=== PATIENT | female | born 1955 | race Caucasian/White ===

== ENCOUNTER 2018-08-03 11:13 | Emergency (ER) | payer MEDICARE, OTHER ==
[2018-08-03] MEDS ORDERED: Ramipril CAP* 10 MG PO ONE (11:39)
--- NOTE | 2018-08-03 11:42 | ED ---
Hypertension - HPI Summary HPI Summary: Pt is a 63 y/o female who presents to the ED c/o HTN. While in preparation for an endoscopy today, her BP was 210/100 manual. Pt has had epigastric pain for a while and has been losing weight. She was diagnosed with a hiatal hernia, and denies the pain radiating to her back. She has a history of HTN, but has not taken her BP medications for years because she didnt think I needed it anymore. Pt also states she thinks she has high BP because she was anxious for the procedure. No PMHx CVA or CA. Pt denies any fever, chills, eye redness, sore throat, CP, chest tightness, SOB, cough, current abdominal pain, N/V, dysuria, hematuria, myalgia, edema, dizziness, or rash. Pt is a former smoker. Home Medications Medication Instructions Recorded Confirmed Type Roflumilast (NF) [Daliresp (NF)] 250 mcg PO DAILY 08/28/13 07/26/18 History Atorvastatin* [Lipitor*] 40 mg PO QAM 01/28/15 07/26/18 History Albuterol HFA INHALER* [Ventolin 1 puff INH Q6H PRN 07/26/18 07/26/18 History HFA Inhaler*] Diazepam TAB(*) [Valium TAB(*)] 5 mg PO SEE INSTRUCTIONS PRN 07/26/18 07/26/18 History Esomeprazole(NF) [NexIUM(NF)] 40 mg PO DAILY 07/26/18 07/26/18 History Ondansetron TAB* [Zofran 4 MG Tab*] 4 mg PO Q6H PRN 07/26/18 07/26/18 History Ramipril CAP* [Altace CAP*] 10 mg PO DAILY 07/26/18 07/26/18 History Sertraline* [Zoloft*] 50 mg PO DAILY 07/26/18 07/26/18 History - History of Current Complaint Chief Complaint: EDHypertension Stated Complaint: HIGH BLOOD PRESSURE Time Seen by Provider: 08/03/18 11:28 Hx Obtained From: Patient Onset/Duration: Started Hours Ago - Today, Still Present Timing: Constant Reported Blood Pressure Prior To Arrival: 210/100 Aggravating Factor(s): Other: - HTN medication non-compliance, anxiety Alleviating Factor(s): Nothing Associated Signs & Symptoms: Anxiety/Stress - Allergies/Home Medications Allergies/Adverse Reactions: Allergies Allergy/AdvReac Type Severity Reaction Status Date / Time pneumococcal vaccine Allergy Swelling Verified 08/03/18 11:21 PMH/Surg Hx/FS Hx/Imm Hx Endocrine/Hematology History: Reports: Hx Unexplained Bleeding - BRUISES Denies: Hx Diabetes Cardiovascular History: Reports: Hx Hypercholesterolemia - HLD, Hx Hypertension - ON MEDICATION FOR, Other Cardiovascular Problems/Disorders - hyperlipidemia Denies: Hx Pacemaker/ICD Respiratory History: Reports: Hx Asthma, Hx Chronic Obstructive Pulmonary Disease (COPD), Other Respiratory Problems/Disorders - COPD, PRN O2 SET AT 3 LITERS VIA NASAL CANNULA GI History: Reports: Hx Gastroesophageal Reflux Disease - ON MEDICATION FOR, Other GI Disorders - cholecystitis History: Denies: Hx Dialysis, Hx Renal Disease Musculoskeletal History: Reports: Hx Arthritis - RIGHT KNEE, Other Musculoskeletal History - Rt knee replacement Sensory History: Reports: Hx Contacts or Glasses - glasses Denies: Hx Hearing Aid Opthamlomology History: Reports: Hx Contacts or Glasses - glasses Neurological History: Reports: Hx Migraine - PRN MEDICATION FOR Psychiatric History: Denies: Hx Panic Disorder - Surgical History Surgery Procedure, Year, and Place: tubal LIGATION-[facility]. partial hysterectomy- [facility]. CHOLECYSTECTOMY 02/03/2015. RIGHT TOTAL KNEE REPLACEMENT 02/10/2015 Hx Anesthesia Reactions: No Infectious Disease History: No Infectious Disease History: Denies: Hx of Known/Suspected MRSA, Traveled Outside the [place] in Last 30 Days - Family History Known Family History: Positive: Cardiac Disease - Mother - Social History Alcohol Use: Occasionally Hx Substance Use: No Substance Use Type: Reports: None Hx Tobacco Use: Yes Smoking Status (MU): Former Smoker Amount Used/How Often: 3 PPD X 35 YEARS Have You Smoked in the Last Year: No Review of Systems Negative: Fever, Chills Negative: Erythema Negative: Sore Throat Negative: Chest Pain Negative: Shortness Of Breath, Cough Negative: Abdominal Pain, Vomiting, Nausea Negative: dysuria, hematuria Negative: Myalgia, Edema Negative: Rash Neurological: Other - NEGATIVE: dizziness Negative: Headache All Other Systems Reviewed And Are Negative: Yes Physical Exam - Summary Physical Exam Summary: Constitutional: Well-developed, Well-nourished, Alert. (-) Distressed Skin: Warm, Dry HENT: Normocephalic; Atraumatic Eyes: Conjunctiva normal Neck: Musculoskeletal ROM normal neck. (-) JVD, (-) Stridor, (-) Tracheal deviation Cardio: Rhythm regular, rate normal, Heart sounds normal; Intact distal pulses; The pedal pulses are 2+ and symmetric. Radial pulses are 2+ and symmetric. (-) Murmur Pulmonary/Chest wall: Effort normal. (-) Respiratory distress, (-) Wheezes, (-) Rales Abd: Soft, (-) epigastric tenderness, (-) Distension, (-) Guarding, (-) Rebound Musculoskeletal: (-) Edema Lymph: (-) Cervical adenopathy Neuro: Alert, Oriented x3 Psych: Mood and affect Normal Triage Information Reviewed: Yes Vital Signs On Initial Exam: Initial Vitals Temp Pulse Resp BP Pulse Ox 97.6 F 65 17 228/104 96 08/03/18 11:16 08/03/18 11:16 08/03/18 11:16 08/03/18 11:16 08/03/18 11:16 Vital Signs Reviewed: Yes Diagnostics - Vital Signs Vital Signs Temp Pulse Resp BP Pulse Ox 08/03/18 11:16 97.6 F 65 17 228/104 96 - Laboratory Result Diagrams: 08/03/18 12:10 08/03/18 12:10 Lab Statement: Any lab studies that have been ordered have been reviewed, and results considered in the medical decision making process. - EKG 11:39 Cardiac Rate: Bradycardia - 59 bpm EKG Rhythm: Sinus Rhythm EKG Interpretation: No STEMI Hypertension Course/Dx - Course Course Of Treatment: Pt is a 63 y/o female who presents to the ED c/o HTN. While in preparation for an endoscopy today, her BP was 210/100 manual. She has a history of HTN, but has not taken her BP medications for years because she didnt think I needed it anymore. Pt also states she thinks she has high BP because she was anxious for the procedure. Pt denies any fever, chills, eye redness, sore throat, CP, chest tightness, SOB, cough, current abdominal pain, N /V, dysuria, hematuria, myalgia, edema, dizziness, or rash. A physical exam was normal. An EKG revealed bradycardia at a rate of 59 bpm, sinus rhythm, and no STEMI. Final dx are uncontrolled hypertension and non-compliance with medications. Pt is discharged and is agreeable with this plan. I have re- prescribed her Ramipril 10 mg daily and she needs to see Dr Guzman within 2-3 days - Diagnoses Provider Diagnoses: Uncontrolled hypertension, Non compliance w medication regimen Discharge - Sign-Out/Discharge Documenting (check all that apply): Patient Departure - Discharge - Discharge Plan Condition: Stable Disposition: HOME Prescriptions: Ramipril CAP* [Altace CAP*] 10 mg PO DAILY #30 cap Patient Education Materials: Hypertension (ED) Referrals: [facility] [Primary Care Provider] - (2-3 days) [facility] [Outside] (2-3 days) Additional Instructions: RETURN TO THE EMERGENCY DEPARTMENT FOR CHANGING OR WORSENING SYMPTOMS - Billing Disposition and Condition Condition: STABLE Disposition: Home - Attestation Statements Document Initiated by Scribe: Yes Documenting Scribe: Cortney Jolley Provider For Whom Scribe is Documenting (Include Credential): Bruce Lunsford MD Scribe Attestation: ICortney, scribed for Bruce Lunsford MD on 08/04/18 at 1243. Scribe Documentation Reviewed: Yes Provider Attestation: The documentation as recorded by the scribeCortney accurately reflects the service I personally performed and the decisions made by , Bruce Lunsford MD
[2018-08-03 12:21] LABS: ABS Basophils 0 10^3/ul (0-0.2); ABS Eosinophils 0.1 10^3/ul (0-0.6); ABS Lymphocytes 1.5 10^3/ul (1.0-4.8); ABS Monocytes 0.9 10^3/ul (0-0.8); ABS Neutrophils 5.3 10^3/ul (1.5-7.7); ABS Nucleated RBC 0 10^3/ul; Eosinophil % 0.8 % (0-6); Hematocrit 40 % (35-47); Hemoglobin 13.6 g/dl (12.0-16.0); Lymphocyte % 19.6 % (25-47); Mean Corpuscular HGB Conc 34 g/dl (31-36); Mean Corpuscular Hemoglobin 28 pg (27-31); Mean Corpuscular Volume 83 fL (80-97); Mean Platelet Volume 7.1 um3 (7.4-10.4); Nucleated Red Blood Cells % 0.1; Platelet Count 237 10^3/ul (150-450); Red Blood Count 4.85 10^6/ul (4.00-5.40); Red Cell Distribution Width 14 % (10.5-15); White Blood Count 7.9 10^3/ul (3.5-10.8)
[2018-08-03 12:44] LABS: EGFR Non-African American 57.8 (>60)
[2018-08-03 13:59] VITALS: BP 184/87
== END 2018-08-03 13:58 | disposition home or self-care (01) ==
LOC: ED 11:13
DX: I10 Essential (primary) hypertension (principal); Z87.891 Personal history of nicotine dependence; Z91.14 Patient's other noncompliance with medication regimen; R19.4 Change in bowel habit; R11.0 Nausea; K62.5 Hemorrhage of anus and rectum; J44.9 Chronic obstructive pulmonary disease, unspecified; R10.9 Unspecified abdominal pain; Z53.8 Procedure and treatment not carried out for other reasons; Z96.651 Presence of right artificial knee joint; Z86.010 Personal history of colon polyps; Z91.09 Other allergy status, other than to drugs and biological substances; Z79.899 Other long term (current) drug therapy; Z91.018 Allergy to other foods
CPT/HCPCS: 36415; 80053; 83605; 83880; 84484; 85025; 93005; 99283; A9270-GY

== ENCOUNTER 2024-01-18 17:08 | Inpatient (IN) ==
[2024-01-18] MEDS: Albuterol/Ipratropium NEB.SOL (2.5/0.5 MG) 3 ML NEB.SOLN INH ONE (17:39)
[2024-01-18] MEDS: methylPREDNISolone SOD SUCC 125 mg 2 ML VIAL IV ONE (17:46)
[2024-01-18 18:11] LABS: ABS Lymphocytes 0.5 10^3/uL (1.0-4.8); ABS Monocytes 0.3 10^3/uL (0.0-0.9); ABS Neutrophils 7.7 10^3/uL (1.5-7.6); ABS Nucleated RBC 0.01 10^3/ul; Hematocrit 37.6 % (35-45); Hemoglobin 12.8 g/dL (11.5-14.3); Mean Corpuscular Hemoglobin 28.3 pg (27-33); Mean Corpuscular Volume 83.4 fL (80-97); Mean Platelet Volume 6.8 fL (7.5-11.2); Nucleated Red Blood Cells % 0.1 %/100WBC (0.0-0.8); Platelet Count 316 10^3/uL (150-450); Red Blood Count 4.51 10^6/uL (3.63-4.92); Red Cell Distribution Width 15.9 % (12-17); White Blood Count 8.5 10^3/uL (3.8-11.8)
[2024-01-18 18:41] LABS: Albumin/Globulin Ratio 1.4 (1-3); Calcium 9.3 mg/dL (8.6-10.3); Creatinine, Serum 1.71 mg/dL (0.51-0.95); Globulin 2.8 g/dL (2-4); Potassium 4.6 mmol/L (3.5-5.0); Total Bilirubin 0.5 mg/dL (0.2-1.0); Total Protein 6.8 g/dL (6.4-8.9)
[2024-01-18] MEDS ORDERED: Lorazepam PYXIS KEY PRN (18:48)
[2024-01-18] MEDS: LORazepam 2 mg VIAL 1 ml IV PUSH ONE (19:17)
[2024-01-18] MEDS: cefTRIAXone 1 gm/50 mL D5W 1 GM/50 ML BAG IV ONE (19:18)
[2024-01-18 19:50] LABS: High Sensitivity Troponin 1 Hr 14 pg/mL (<15)
[2024-01-18] MEDS ORDERED: Albuterol HFA INHALER 8 gm MDI INH PRN (20:22)
[2024-01-18] MEDS: Albuterol/Ipratropium NEB.SOL (2.5/0.5 MG) 3 ML NEB.SOLN INH SCH (21:18)
[2024-01-18] MEDS: methylPREDNISolone SOD SUCC 40 mg/ml 1 ml VIAL IV SCH (22:04)
[2024-01-18] MEDS: Azithromycin 500 mg/250 ml NS 500 MG/250 ML BAG IVPB SCH (22:05)
[2024-01-18] MEDS: Enoxaparin 30 MG/0.3 ML SYR SUBCUT SCH (22:06)
[2024-01-18] MEDS: FORMOTEROL INH SCH (22:07)
[2024-01-18] MEDS: BUDESONIDE INH SCH (22:07)
[2024-01-18] MEDS: GLYCOPYRROLATE INH SCH (22:07)
[2024-01-19] MEDS: Albuterol HFA INHALER 8 gm MDI INH SCH (01:58)
[2024-01-19 06:18] LABS: ABS Lymphocytes 0.5 10^3/uL (1.0-4.8); ABS Monocytes 0.2 10^3/uL (0.0-0.9); ABS Neutrophils 7.5 10^3/uL (1.5-7.6); Hematocrit 35.9 % (35-45); Lymphocyte % 5.7 %; Mean Corpuscular Hemoglobin 27.8 pg (27-33); Mean Corpuscular Hgb Conc 33.3 g/dL (31-36); Mean Corpuscular Volume 83.4 fL (80-97); Platelet Count 280 10^3/uL (150-450); Red Blood Count 4.31 10^6/uL (3.63-4.92); Red Cell Distribution Width 15.9 % (12-17); White Blood Count 8.2 10^3/uL (3.8-11.8)
[2024-01-19 06:47] LABS: Calcium 8.6 mg/dL (8.6-10.3); Creatinine, Serum 1.55 mg/dL (0.51-0.95); Magnesium 1.8 mg/dL (1.9-2.7); Potassium 4.3 mmol/L (3.5-5.0)
[2024-01-19] MEDS: Magnesium Sulfate IV 1GM/100ML 1 GM/100 ML BAG IV ONE (08:10)
[2024-01-19] MEDS: Albuterol/Ipratropium NEB.SOL (2.5/0.5 MG) 3 ML NEB.SOLN INH PRN (08:22)
[2024-01-19] MEDS: CMCS: Roflumilast 500 mcg TAB (NF) PO SCH (08:41)
[2024-01-19] MEDS ORDERED: AMLODIPINE BENAZEPRIL PO SCH (09:00)
[2024-01-19] MEDS: PTO: BUDESONIDE/GLYCOPYR/FORMOTEROL MDI (NF) INH SCH (12:23)
[2024-01-19] MEDS: Albuterol/Ipratropium NEB.SOL (2.5/0.5 MG) 3 ML NEB.SOLN INH SCH (19:56)
[2024-01-19] MEDS ORDERED: Albuterol HFA INHALER 8 gm MDI INH PRN (20:02)
[2024-01-19] MEDS: cefTRIAXone 1 gm/50 mL D5W 1 GM/50 ML BAG IV SCH (21:41)
[2024-01-20] MEDS ORDERED: Albuterol/Ipratropium NEB.SOL (2.5/0.5 MG) 3 ML NEB.SOLN INH PRN ×2 (06:35→10:37)
[2024-01-20] MEDS: Albuterol HFA INHALER 8 gm MDI INH SCH (07:45)
[2024-01-20] MEDS ORDERED: Albuterol/Ipratropium NEB.SOL (2.5/0.5 MG) 3 ML NEB.SOLN INH SCH (11:00)
[2024-01-21] MEDS: methylPREDNISolone SOD SUCC 40 mg/ml 1 ml VIAL IV SCH (17:50)
[2024-01-22] MEDS: hydrALAZINE 20 mg/ml 1 ML Vial IV IV SLOW PU PRN (06:08)
[2024-01-22 06:47] LABS: Calcium 8.7 mg/dL (8.6-10.3); Creatinine, Serum 1.48 mg/dL (0.51-0.95); Magnesium 2.2 mg/dL (1.9-2.7); Potassium 4.1 mmol/L (3.5-5.0); eGFR CKD-EPI 38.1 (>60)
[2024-01-22] MEDS: methylPREDNISolone SOD SUCC 40 mg/ml 1 ml VIAL IV SCH (13:21)
[2024-01-23] MEDS ORDERED: Albuterol/Ipratropium NEB.SOL (2.5/0.5 MG) 3 ML NEB.SOLN INH PRN (09:35)
[2024-01-23 09:37] LABS: Calcium 8.6 mg/dL (8.6-10.3); Creatinine, Serum 1.26 mg/dL (0.51-0.95); Phosphorus 3.5 mg/dL (2.5-5.0); eGFR CKD-EPI 46.2 (>60)
[2024-01-23] MEDS: Albuterol/Ipratropium NEB.SOL (2.5/0.5 MG) 3 ML NEB.SOLN INH SCH ×2 (10:23→17:29)
[2024-01-23] MEDS: Albuterol HFA INHALER 8 gm MDI INH SCH ×2 (13:31→19:38)
[2024-01-23] MEDS ORDERED: Albuterol HFA INHALER 8 gm MDI INH PRN (15:18)
[2024-01-23] MEDS: NF: BUDESONIDE/GLYCOPYR/FORMOTEROL MDI (NF) INH SCH (19:38)
[2024-01-24 14:40] VITALS: BP 136/70
== END 2024-01-24 16:15 | disposition home or self-care (01) | DRG 192 ==
LOC: ED 17:08 → EDHOLD 17:08 → SUATTDRO 19:11 → MED 01-19 15:53 → SUATTDRO 01-20 13:14
PROVIDERS: ADMIT Student in an Organized Health Care Education/Training Program; ATTEND Hospitalist

== ENCOUNTER 2024-02-07 22:27 | Observation (INO) ==
[2024-02-08 00:56] LABS: ABS Lymphocytes 0.3 10^3/uL (1.0-4.8); ABS Monocytes 0.3 10^3/uL (0.0-0.9); ABS Nucleated RBC 0.01 10^3/ul; Eosinophil % 0.5 %; Hematocrit 31.3 % (35-45); Hemoglobin 10.6 g/dL (11.5-14.3); Lymphocyte % 3.7 %; Mean Corpuscular Hemoglobin 28.3 pg (27-33); Mean Corpuscular Hgb Conc 33.9 g/dL (31-36); Mean Corpuscular Volume 83.5 fL (80-97); Mean Platelet Volume 6.9 fL (7.5-11.2); Nucleated Red Blood Cells % 0.1 %/100WBC (0.0-0.8); Platelet Count 126 10^3/uL (150-450); Red Blood Count 3.75 10^6/uL (3.63-4.92); Red Cell Distribution Width 16.2 % (12-17); White Blood Count 7.6 10^3/uL (3.8-11.8)
[2024-02-08 01:53] LABS: Albumin 3.4 g/dL (3.2-5.2); Albumin/Globulin Ratio 1.5 (1-3); C Reactive Protein 41.46 mg/L (<8.01); Calcium 8.3 mg/dL (8.6-10.3); Creatinine, Serum 1.6 mg/dL (0.51-0.95); Globulin 2.3 g/dL (2-4); Potassium 4.3 mmol/L (3.5-5.0); Total Bilirubin 0.4 mg/dL (0.2-1.0); Total Protein 5.7 g/dL (6.4-8.9); eGFR CKD-EPI 34.7 (>60)
[2024-02-08] MEDS ORDERED: Albuterol/Ipratropium NEB.SOL (2.5/0.5 MG) 3 ML NEB.SOLN ONE (05:32)
[2024-02-08] MEDS: Albuterol/Ipratropium NEB.SOL (2.5/0.5 MG) 3 ML NEB.SOLN INH ONE ×2 (05:34→06:57)
[2024-02-08] MEDS: Lactated Ringers 1000 ml BAG 1,000 ML IV ONE (05:57)
[2024-02-08] MEDS: Azithromycin 500 mg/250 ml NS 500 MG/250 ML BAG IVPB ONE (07:30)
[2024-02-08] MEDS: NS 0.9% 500 ml BAG 500 ML IV ONE (12:05)
[2024-02-08] MEDS: Piperacillin/Tazobac 3.375 BAG 3.375 GM/100 ML BAG IV ONE (13:06)
[2024-02-08] MEDS: Magnesium Sulfate 2 gm BAG 2 GM/50 ML BAG IVPB ONE (13:28)
[2024-02-08] MEDS ORDERED: Albuterol HFA INHALER 8 gm MDI INH PRN (13:59)
[2024-02-08] MEDS: Albuterol/Ipratropium NEB.SOL (2.5/0.5 MG) 3 ML NEB.SOLN INH PRN (14:41)
[2024-02-08] MEDS: Furosemide 40 mg/4 ml IV VIAL IV ONE (16:05)
[2024-02-08] MEDS: Enoxaparin 40 MG/0.4 ML SYR SUBCUT SCH (16:06)
[2024-02-08] MEDS: CMCS: Roflumilast 500 mcg TAB (NF) PO SCH (17:01)
[2024-02-08] MEDS: PTO: BUDESONIDE/GLYCOPYR/FORMOTEROL MDI (NF) INH SCH (21:25)
[2024-02-09 05:32] LABS: ABS Lymphocytes 0.4 10^3/uL (1.0-4.8); ABS Monocytes 0.5 10^3/uL (0.0-0.9); ABS Neutrophils 8.8 10^3/uL (1.5-7.6); Hematocrit 31.5 % (35-45); Hemoglobin 10.8 g/dL (11.5-14.3); Lymphocyte % 4.3 %; Mean Corpuscular Hemoglobin 28.1 pg (27-33); Mean Corpuscular Hgb Conc 34.2 g/dL (31-36); Mean Corpuscular Volume 82.1 fL (80-97); Platelet Count 171 10^3/uL (150-450); Red Blood Count 3.84 10^6/uL (3.63-4.92); White Blood Count 9.7 10^3/uL (3.8-11.8)
[2024-02-09 06:05] LABS: Calcium 8.5 mg/dL (8.6-10.3); Creatinine, Serum 1.6 mg/dL (0.51-0.95); Potassium 4.2 mmol/L (3.5-5.0); eGFR CKD-EPI 34.7 (>60)
[2024-02-09] MEDS: Iodixanol (CONTRAST) 320 MG/ML 100 ML SDV IV ONE (10:28)
[2024-02-09] MEDS: Morphine ORAL.SOLN 10 mg 2 mg/ml UDC 5 ml (10 mg) PO ONE (10:34)
[2024-02-09 10:52] VITALS: BP 117/66
== END 2024-02-09 13:20 | disposition home or self-care (01) ==
LOC: EDHOLD 22:27 → ED 22:27 → SUATTDRO 02-08 13:05 → MEDTELE 02-08 14:02
PROVIDERS: ADMIT Hospitalist; ATTEND Student in an Organized Health Care Education/Training Program